=== PATIENT | female | born 1935 | race Hispanic/Latino ===

== ENCOUNTER → 2021-07-07 | Outpatient (CLI) | payer OTHER | END | disposition home or self-care (01) | LOC: RAH 12:53 | PROVIDERS: ATTEND Psychiatry & Neurology Neurology | DX: G31.9 Degenerative disease of nervous system, unspecified (principal) | CPT/HCPCS: 70551 ==

== ENCOUNTER → 2023-04-02 | Outpatient (CLI) | payer OTHER | END | disposition home or self-care (01) | LOC: RAH 12:08 | PROVIDERS: ATTEND Family Medicine | DX: M79.622 Pain in left upper arm (principal); R22.32 Localized swelling, mass and lump, left upper limb; M79.605 Pain in left leg; M79.604 Pain in right leg; R23.3 Spontaneous ecchymoses; I82.409 Acute embolism and thrombosis of unspecified deep veins of unspecified lower extremity; Z85.820 Personal history of malignant melanoma of skin | CPT/HCPCS: 76882; 93970; 93971 ==